=== PATIENT | female | born 1970 | race American Indian/Alaskan Native ===

== ENCOUNTER 2019-11-10 17:43 | Emergency (ER) | payer OTHER ==
[~2019-11-10] VITALS: Ht 162.6 cm; Wt 108.0 kg
[~2019-11-10 17:43] MED LIST: IBUPROFEN600 MG PO; LANTUS SOL100 UNIT/1 SUB-Q; LEVOTHYROXINE100 MCG PO; MEDROXYPROGESTE10 MG PO; METFORMIN HCL1000 MG PO; NORCO 5-325 TA1 EACH PO; POTASSIUM GLUC500 MG PO; ZOFRAN ODT8 MG PO
[2019-11-10] MEDS ORDERED: CELEXA40 MG PO (17:56)
[2019-11-10] MEDS ORDERED: NORCO 5-325 TA1 EACH PO (19:14)
[2019-11-10] MEDS ORDERED: DICLOFENAC SODI75 MG PO (19:14)
== END 2019-11-10 19:27 | disposition home or self-care (01) ==
LOC: ED 17:43
DX: S46.911A Strain of unspecified muscle, fascia and tendon at shoulder and upper arm level, right arm, initial encounter (principal); X58.XXXA Exposure to other specified factors, initial encounter
CPT/HCPCS: 73030; 99283

== ENCOUNTER 2021-04-04 19:32 | Emergency (ER) | payer OTHER ==
[~2021-04-04] VITALS: Ht 162.6 cm; Wt 108.0 kg
[~2021-04-04 19:32] MED LIST changes: +CELEXA40 MG PO; +DICLOFENAC SODI75 MG PO
[2021-04-04] MEDS ORDERED: LEVOTHYROXINE150 MCG PO (20:32)
[2021-04-04] MEDS ORDERED: OMEPRAZOLE20 MG PO (20:33)
== END 2021-04-04 21:05 | disposition home or self-care (01) ==
LOC: ED 19:32
DX: S90.851A Superficial foreign body, right foot, initial encounter (principal); W45.8XXA Other foreign body or object entering through skin, initial encounter; Z23 Encounter for immunization; E11.9 Type 2 diabetes mellitus without complications; Z88.8 Allergy status to other drugs, medicaments and biological substances; Z88.5 Allergy status to narcotic agent; Z79.899 Other long term (current) drug therapy
CPT/HCPCS: 90471; 90714; 99283-25